=== PATIENT | male | born 1980 | race Hispanic/Latino ===

== ENCOUNTER 2023-10-09 10:10 | Emergency (ER) | payer SELFPAY ==
[2023-10-09] MEDS ORDERED: Acetaminophen 500 MG TAB ONE (13:36)
[2023-10-09 13:47] LABS: SARS-CoV-2 NAA Rapid Test Not Detected (NotDetected)
== END 2023-10-09 14:07 | disposition home or self-care (01) ==
LOC: ERS 10:10
DX: J10.1 Influenza due to other identified influenza virus with other respiratory manifestations (principal); Z20.822 Contact with and (suspected) exposure to COVID-19
CPT/HCPCS: 99283